=== PATIENT | female | born 1940 | race Caucasian/White ===

== ENCOUNTER 2017-06-20 00:10 | Emergency (ER) | payer MEDICARE, OTHER ==
[~2017-06-20] VITALS: Ht 165.1 cm; Wt 59.9 kg
--- NOTE | 2017-06-20 00:31 | NUR ---
PT DEBO FROM [facility]. PT STATES "FELL 2 WEEKS AGO IN [place] WHILE PUTTING ON MY PANTS AND WENT TO [facility] AND WAS TOLD I BROKE MY 10TH RIB"; "PAIN WORSE TODAY WHEN I BENT" PT AOX3 RR EVEN AND UNLABORED. NO SOB NOTED. DENIES CP. NO NVD AT THIS TIME. PT NOT DIAPHORETIC. PT GOWNED AND PLACED ON MONITOR WAITING FOR MD ESPINOZA.
--- NOTE | 2017-06-20 00:39 | NUR ---
DR. SESAY AT BEDSIDE FOR EVAL.
--- NOTE | 2017-06-20 00:46 | NUR ---
VERBAL ORDERS, DR. SESAY D/C CHEST XR. 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
--- NOTE | 2017-06-20 00:50 | NUR ---
proved pt with incentive spirometer per dr. sheffield orders. pt able to verbalize understanding.
[2017-06-20] MEDS ORDERED: HYDROCODONE/APAP 5/325MG 1 EACH TABLET ONE (00:57)
[2017-06-20] MEDS: HYDROCODONE/APAP 5/325MG 1 EACH TABLET PO ONE (01:05)
--- NOTE | 2017-06-20 01:08 | NUR ---
Patient discharged to home in stable condition. Written and verbal after care instructions given. Patient verbalizes understanding of instruction. ambulatory with a steady gait. instructed pt not to drive. pt verbalize understand. pt accompanied by
[2017-06-20 01:09] VITALS: BP 136/78
== END 2017-06-20 01:12 | disposition home or self-care (01) ==
LOC: ER 00:12
DX: S22.32XA Fracture of one rib, left side, initial encounter for closed fracture (principal); E03.9 Hypothyroidism, unspecified; S27.9XXA Injury of unspecified intrathoracic organ, initial encounter; X58.XXXA Exposure to other specified factors, initial encounter; Y93.89 Activity, other specified; Y92.89 Other specified places as the place of occurrence of the external cause; Y99.8 Other external cause status
CPT/HCPCS: A4606; Z7610